=== PATIENT | female | born 1995 | race Caucasian/White ===

== ENCOUNTER 2017-05-01 07:57 | Emergency (ER) | payer OTHER ==
[~2017-05-01 07:57] MED LIST: ALBUTEROL17 GM INH; BACTRIM DS TABL1 TA1 PO; BACTRIM DS TABL1 TAB PO; BENZONATATE PO; BIRTH CONTROL PILL; CIPRO PO; DARVOCET-N 1001 TA1 PO; DICLEGIS DR 101 EACH PO; FLEXERIL10 MG; FLEXERIL10 MG PO; IBUPROFEN IB100 MG; IBUPROFEN PO; METRONIDAZOLE PO; MOTRIN400 MG PO; NAPROSYN500 MG PO; NO MEDICATIONS; NYQUIL D COLD295 M1 PO; PHENERGAN PO; PHENERGAN SUPP25 MG PR; PHENERGAN25 M1 PO; PHENERGAN25 MG PO; PREDNISONE PO; PRENATAL1 TA1 PO; PRILOSEC20 MG PO; QVAR7.3 G1 INH; ROBAXIN 750750 M1 PO; TYLENOL #3; VICODIN 5/500 T1 TAB PO; VOLTAREN50 MG PO; VOLTAREN75 MG PO; ZANTAC150 MG PO; ZITHROMAX PO; ZOFRAN ODT4 MG PO; ZOFRAN PO; [UNRECOGNIZED DRUG - REMARK]
== END 2017-05-01 09:10 | disposition home or self-care (01) ==
LOC: SED 07:57
DX: J02.9 Acute pharyngitis, unspecified (principal); J45.909 Unspecified asthma, uncomplicated; Z88.5 Allergy status to narcotic agent
CPT/HCPCS: 96372; 99282; J0561; J1885